=== PATIENT | female | born 1975 | race Caucasian/White ===

== ENCOUNTER 2023-09-24 18:01 | Observation (INO) | payer OTHER, SELFPAY ==
[2023-09-24 18:19] VITALS: BP 143/116; PULSE 124; RESP 22; TEMP 37.2; O2SAT 97; BMI 21.4
[2023-09-24 18:20] VITALS: BMI 21.4
[2023-09-24 18:31] VITALS: BP 149/108; PULSE 106; O2SAT 95
[2023-09-24 18:32] LABS: Basophils # 0.2 K/mm3 (0-0.2); Eosinophils # 0.2 K/mm3 (0.0-0.4); Eosinophils % 1.4 % (0.1-12.0); Hematocrit 43.8 % (37.0-47.0); Hemoglobin 14.6 g/dL (12.2-16.2); Lymphocytes # 3.8 K/mm3 (0.7-4.5); Lymphocytes % 25.6 % (10-50); Mean Corpuscular HGB Conc 33.4 g/dL (31.8-35.4); Mean Corpuscular Volume 89.8 fl (81-99); Monocytes # 0.8 K/mm3 (0.1-1.0); Monocytes % 5.2 % (1.7-9.3); Neutrophils % 66.9 % (37.0-80.0); Platelet Count 257 K/mm3 (142-424); Red Blood Count 4.88 M/mm3 (4.20-5.40); Red Cell Distribution Width 13.3 % (11.5-17.5); White Blood Count 14.9 K/mm3 (4.8-10.8)
[2023-09-24 18:36] LABS: Alanine Aminotransferase 33 U/L (12-78); Albumin Level 4.7 g/dl (3.5-5.0); Albumin/Globulin Ratio 1.4 (1.1-1.8); Alkaline Phosphatase 75 U/L (38-126); Anion Gap 13.7 mEq/L (5-15); Aspartate Amino Transferase 51 U/L (14-36); Bilirubin,Total 0.5 mg/dl (0.2-1.3); Blood Urea Nitrogen 14 mg/dl (7-17); Calcium 10.4 mg/dl (8.4-10.2); Carbon Dioxide 29 mmol/L (22.0-30.0); Chloride 102 mmol/L (98-107); Creatinine Clearance Estimated 64 mL/min (50-200); Estimated Glomerular Filt Rate 60 ml/min (>60); GFR (African American) 73 ML/MIN (>60); Globulin 3.4 g/dL (1.3-3.2); Glucose 100 mg/dl (74-100); Sodium 142 mmol/L (136-145); Total Protein,Serum 8.1 g/dl (6.3-8.2)
[2023-09-24 18:44] LABS: Potassium 2.7 mmoL/L (3.5-5.1)
[2023-09-24 18:49] LABS: Microscopic, Urine URINE MICROSCOPIC (MICROSCOPIC)
[2023-09-24 18:52] LABS: Appearance,Urine CLEAR (Clear); Bilirubin,Urine Negative (Negative); Blood, Urine Negative (Negative); Color,Urine YELLOW (Yellow); Glucose,Urine (UA) Negative (Negative); Ketones,Urine Negative (Negative); Leukocyte Esterase,Urine Negative (Negative); Nitrate,Urine Negative (Negative); Protein,Urine Negative (Negative); Specific Gravity, Urine <= 1.005 (1.005-1.030); Urobilinogen,Urine 0.2 EU/dl (0.2)
--- NOTE | 2023-09-24 19:02 | CT_ITS ---
PROCEDURE INFORMATION: Exam: CT Abdomen And Pelvis With Contrast Exam date and time: 09/24/2023 7:36 PM Age: 47 years old Clinical indication: Abdominal pain; Localized; Right; Additional info: Ruq pain to back, R flank pain TECHNIQUE: Imaging protocol: Computed tomography of the abdomen and pelvis with contrast. Radiation optimization: All CT scans at this facility use at least one of these dose optimization techniques: automated exposure control; mA and/or kV adjustment per patient size (includes targeted exams where dose is matched to clinical indication); or iterative reconstruction. Contrast material: ISOVUE; Contrast volume: 75 ml; Contrast route: IV; COMPARISON: No relevant prior studies available. FINDINGS: Liver: Normal. No mass. Gallbladder and biliary ducts: Normal. No calcified stones. No ductal dilation. Pancreas: Normal. No ductal dilation. Spleen: Normal. No splenomegaly. Adrenal glands: Normal. No mass. Kidneys and ureters: Normal. No hydronephrosis. Stomach and bowel: Moderate fecal material noted throughout the colon. No bowel obstruction. Appendix: No evidence of appendicitis. Intraperitoneal space: Unremarkable. No free air. No significant fluid collection. Vasculature: Unremarkable. No abdominal aortic aneurysm. Lymph nodes: Unremarkable. No enlarged lymph nodes. Urinary bladder: Unremarkable as visualized. Reproductive: Unremarkable as visualized. Bones/joints: Posterior fusion and pedicle screws noted at L5 and S1. Streak artifact noted from metallic hardware. Mild anterior subluxation of L5 on S1. Disc spacer in place at L5-S1. Soft tissues: Unremarkable. IMPRESSION: 1. No acute intra-abdominal inflammatory process or bowel obstruction 2. Moderate fecal burden noted throughout the colon. Correlate clinically for constipation 3. Postsurgical changes secondary to L5 and S1 pedicle screw placement and posterior fusion
[2023-09-24 19:04] LABS: Barbiturates Screen,Urine Negative ng/ml (<200); Benzodiazepines Screen,Urine Negative ng/ml (<200)
--- NOTE | 2023-09-24 19:04 | ED_ITS ---
Discharge Plan Disposition Chief Complaint: Abdominal Pain Referrals Follow up/Referrals: Provider,Referral, [Primary Care Provider] - See instructions Clinical Impressions Clinical Impression: Vomiting, Acute hypokalemia Instructions Patient Instructions: DI for Acute Abdominal Pain Discharge ED Provider: Armaan Tan General Adult HPI General Chief complaint: Abdominal Pain Stated complaint: Abdominal Pain with nausea Time Seen by Provider: 09/24/23 18:27 Mode of Arrival: Ambulatory Source of Information: Patient Limitations: No Limitations Description of Symptoms (Recalled from ER Triage Doc. 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 pt states the pain is stabbing in nature and an 8/10. pt also reports N/V and a migraine that is sharp and 7/10. pt reports photophobia and sensitivity to sound. pt is anxious, thrashing around in the bed, experiencing automatisms, diaphoretic and her face is very red. pt reports she took her 30mg adderall xr this am and has taken her SL migraine medication around 1530 and again at 1700. pt states she smoked marijuanna last night but does not use any other recreational drugs. History of Present Illness HPI narrative: Patient is a 47-year-old female largely healthy who presents emergency department for evaluation of abdominal pain. Onset was acute, over the last 24 hours, associated nonbloody vomiting and severe right upper quadrant and right flank pain radiating to her back. She smoked medical grade marijuana last night. No chest pain. No other acute complaints at this time. Related Data Allergies Allergy/AdvReac Type Severity Reaction Status Date / Time povidone-iodine Allergy Verified 09/24/23 18:23 [From Betadine] pseudoephedrine Allergy Verified 09/24/23 18:23 [From Sudafed] shellfish derived Allergy Verified 09/24/23 18:23 [facility] Disclaimer: The information contained in this section may have been updated after the patient was seen, as this information can be updated by other users. Social History Smoking Status: Current every day smoker alcohol intake: current alcohol intake frequency: other current occupational status: other Travel in the last 8 weeks: None ROS Obtained: Yes Systems reviewed as appropriate & no additional complaints except as documented Physical Exam General General appearance: alert and in distress Head Head exam: atraumatic and normocephalic Eye Eye exam: Present PERRL ENT ENT exam: Present mucous membranes moist Neck Neck exam: Present normal inspection Chest Chest inspection: Present normal inspection and symmetric chest wall rise Respiratory Respiratory exam: Present normal lung sounds bilaterally; Absent respiratory distress Cardiovascular Cardiovascular exam: Present normal rhythm and tachycardia Abdominal Exam Abdominal exam: Present soft, tenderness (Right upper quadrant) and guarding (Voluntary) Extremities Exam Extremities exam: Present normal inspection Neurological Exam Neurological exam: Present alert Psychiatric Psychiatric exam: Present normal affect Skin Skin exam: Present warm and dry Medical Decision Making Kameron Inquiry Pt receiving controlled substance: No Vital Signs: 09/24/23 18:19 09/24/23 18:31 Temperature 99 F Temperature Source Oral Pulse Rate 106 H Pulse Rate [Left] 124 H Respiratory Rate 22 Blood Pressure 149/108 H Blood Pressure [Right Arm] 143/116 H Blood Pressure Mean [Right Arm] 125 Blood Pressure Source [Right Arm] Automatic Cuff Blood Pressure Position [Right Arm] Sitting 02 Sat by Pulse Oximetry 97 95 Oxygen Delivery Method Room Air Room Air Lab Data Lab Results 09/24/23 18:10: Urine Opiates Screen Negative, Urine Methadone Screen Negative, Ur Barbituates Screen Negative, Ur Phencyclidine Scrn Negative, Ur Amphetamines Screen TNP, U Benzodiazepines Scrn Negative, Urine Cocaine Screen Negative, U Marijuana (THC) Screen Positive H 09/24/23 18:15: WBC 14.9 H, RBC 4.88, Hgb 14.6, Hct 43.8, MCV 89.8, MCH 30.0, MCHC 33.4, RDW 13.3, Plt Count 257, MPV 11.0 H, Neut % (Auto) 66.9, Lymph % (Auto) 25.6, [place] % (Auto) 5.2, Eos % (Auto) 1.4, Baso % (Auto) 1.0, Neut # (Auto) 10.0 H, Lymph # (Auto) 3.8, [place] # (Auto) 0.8, Eos # (Auto) 0.2, Baso # (Auto) 0.2, Sodium 142, Potassium 2.7 L*, Chloride 102, Carbon Dioxide 29, Anion Gap 13.7, BUN 14, Creatinine 1.00, Estimated Creat Clear 64, Estimated GFR 60, Est GFR ( Amer) 73, Glucose 100, Lactate 2.5 H, Calcium 10.4 H, Magnesium 1.8, Total Bilirubin 0.5, AST 51 H, ALT 33, Alkaline Phosphatase 75, Troponin I < 0.01, Total Protein 8.1, Albumin 4.7, Globulin 3.4 H, Albumin/Globulin Ratio 1.4, Lipase 109, HCG, Quant < 2 09/24/23 18:25: Urine Color Yellow, Urine Appearance Clear, Urine pH 6.0, Ur Specific [place] <= 1.005, Urine Protein Negative, Urine Glucose (UA) Negative, Urine Ketones Negative, Urine Blood Negative, Urine Nitrate Negative, Urine Bilirubin Negative, Urine Urobilinogen 0.2, Ur Leukocyte Esterase Negative, Urine RBC None, Urine WBC Occasional, Ur Squamous Epith Cells Occasional, Urine Bacteria Trace 09/24/23 18:15 09/24/23 18:15 Orders (Tests/Meds): ED MEDICATIONS Generic Name Dose Route Start Last Admin Trade Name Freq PRN Reason Stop Dose Admin Potassium Chloride/Water 100 mls @ 50 mls/hr 09/24/23 19:00 09/24/23 20:45 Potassium Chloride 20meq/100ml Ivpb IV 09/24/23 22:59 50 mls/hr Q2H MARIAH Administration Discontinued Medications Generic Name Dose Route Start Last Admin Trade Name Freq PRN Reason Stop Dose Admin Acetaminophen 1,000 mg 09/24/23 19:02 09/24/23 19:51 Acetaminophen 1,000mg/100ml Vial IV 09/24/23 19:03 1,000 mg ONCE ONE Administration Lactated Ringer's 1,000 mls @ 999 mls/hr 09/24/23 19:02 09/24/23 19:52 Lactated Ringer's 1000 Ml Bag IV 09/24/23 20:02 Not Given .Q1H1M ONE Lactated Ringer's 1,000 mls @ 820 mls/hr 09/24/23 19:03 09/24/23 21:16 Lactated Ringer's 1000 Ml Bag IV 09/24/23 21:03 Not Given .Q1H14M MARIAH Iopamidol 75 ml 09/24/23 19:34 09/24/23 19:35 Iopamidol-370 (76%);100ml Bottle IV 09/24/23 19:35 75 ml ONCE ONE Administration Ketorolac Tromethamine 30 mg 09/24/23 19:02 09/24/23 19:51 Ketorolac 30mg/Ml Vial IV 09/24/23 19:03 30 mg ONCE ONE Administration Potassium Chloride 40 meq 09/24/23 19:00 09/24/23 19:50 Potassium Chloride 20meq Tab PO 09/24/23 19:01 40 meq ONCE ONE Administration Sodium Chloride 10 ml 09/24/23 19:34 09/24/23 19:35 Sodium Chloride 0.9% 10ml Syr (Rad Only) IV 09/24/23 19:35 10 ml ONCE ONE Administration ORDERS Category Date Time Status CT abdomen pelvis w con Stat Cat Scan 09/24/23 19:02 Completed Complete Blood Count Auto Diff Stat Lab 09/24/23 18:15 Completed Comprehensive Metabolic Panel Stat Lab 09/24/23 18:15 Completed HCG,Quantitative Stat Lab 09/24/23 18:15 Completed Lactic Acid Stat Lab 09/24/23 18:15 Completed Lipase Stat Lab 09/24/23 18:15 Completed Magnesium Stat Lab 09/24/23 18:15 Completed Trop I [Troponin I] Stat Lab 09/24/23 18:15 Completed Troponin I Q3H Lab 09/24/23 22:15 Ordered Troponin I Q3H Lab 09/25/23 01:15 Ordered UDS [Drug Screen,Urine] Stat Lab 09/24/23 18:10 Completed Urinalysis and Microscopic Stat Lab 09/24/23 18:25 Completed EKG Request [ECG Request] Stat Y 09/24/23 19:06 Ordered ECG Data Tracing #1: Independently interpreted by me, rate is 89, rhythm is regular, axis is normal, no ST elevation in anatomical contiguous leads, QTc 429 Medical Decision Narrative: In summary patient is a 47-year-old female past medical history described above who presents emergency department for evaluation of abdominal pain and vomiting. Patient is hemodynamically stable and appearing in pain upon arrival, afebrile however tachycardic. Differential diagnosis includes cholecystitis, pancreatitis, among others. Workup will be conducted with hematologic labs, urinalysis, EKG, troponin, CT abdomen pelvis IV contrast. Initial interventions include crystalloid bolus, Zofran, IV Tylenol, IV Toradol, morphine. Initial workup reviewed by me, leukocytosis 14.9, critical hypokalemia which will be repleted orally and IV, no associated hypomagnesemia. Urinalysis interpreted by me and not consistent with infection. CT abdomen pelvis shows moderate fecal burden, no acute abdominal abnormality. Tissue reperfusion assessment 2143. Given critical hypokalemia the case was discussed with hospital medicine regarding management patient be admitted to their service for continued evaluation at this time. Critical Care Critical Care Time Critical Care Time: Yes Attestation: On 09/24/23, the high probability of a clinically significant, sudden or life threatening deterioration of the following system(s) required my full and direct attention, intervention and personal management. The time I documented below is in addition to time spent performing reported procedures but includes the following listed in this critical care notation. Total Time Total Critical Care Time: 40
[2023-09-24 19:05] LABS: Cannabinoid Screen,Urine Positive ng/ml (<50)
[2023-09-24 19:06] LABS: Magnesium 1.8 mg/dl (1.6-2.3)
[2023-09-24 19:06] LABS: Cocaine Screen,Urine Negative ng/ml (<300)
--- NOTE | 2023-09-24 19:06 | ECG_ITS ---
APPROVED REPORT Exam: Resting ECG HR:89 bpm ECG Measurements Heart Rate 89 AXES MI 169 P 76 QRSd 97 QRS 70 QT 382 T 72 QTc 429 Conclusion SINUS RHYTHM WITH MARKED SINUS ARRHYTHMIA INDETERMINATE AXIS BORDERLINE ECG Electronically signed by : BRIGITTE OLIVER, 09/25/2023 00:12:20
[2023-09-24 19:07] LABS: Methadone Screen,Urine Negative ng/ml (<300)
[2023-09-24 19:08] LABS: Lipase 109 U/L (23-300)
[2023-09-24 19:08] LABS: Opiate Screen,Urine Negative ng/ml (<300)
[2023-09-24 19:09] LABS: Phencyclidine Screen,Urine Negative ng/ml (<25)
[2023-09-24 19:23] LABS: Bacteria,Urine Trace /lpf; Squamous Epithelial Cell,Urine Occasional #/hpf (0-5); WBC,Urine Occasional #/hpf (0-3)
[2023-09-24 19:28] LABS: HCG,Quantitative < 2 mIU/ml (0-5.42)
[2023-09-24] MEDS: IOPAMIDOL-370 (76%);100ML BOTTLE 75 ML IV (19:35)
[2023-09-24] MEDS: SODIUM CHLORIDE 0.9% 10ML SYR (RAD ONLY) 10 ML IV (19:35)
[2023-09-24 19:38] LABS: Troponin I < 0.01 ng/ml (0.00-0.034)
--- NOTE | 2023-09-24 19:44 | PC.NURSE ---
Rounded on pt. pt does not need anything at this time. BP cuff and pulse ox intact. Call light is within reach of pt.
[2023-09-24] MEDS: LACTATED RINGERS 1000ML 1,000 ML 820 ML IV (19:50)
[2023-09-24] MEDS: POTASSIUM CHLORIDE 20MEQ TAB 40 MEQ PO (19:50)
[2023-09-24] MEDS: KETOROLAC 30MG/ML VIAL 30 MG IV (19:51)
[2023-09-24] MEDS: ACETAMINOPHEN 1,000MG/100ML VIAL 1000 MG IV (19:51)
[2023-09-24 19:55] LABS: Lactic Acid 2.5 mmol/L (0.7-2.1)
--- NOTE | 2023-09-24 20:27 | PC.NURSE ---
rounded on pt at this time. pt voices no needs
[2023-09-24] MEDS: KCl 20mEq/100ml 100 ML 50 MEQ IV ×2 (20:45→22:35)
--- NOTE | 2023-09-24 21:15 | PC.NURSE ---
rounded on pt at this time. pt voices no needs.
--- NOTE | 2023-09-24 22:00 | PC.NURSE ---
Gave report to Citlalli ORDONEZ Med/Surg
[2023-09-24 22:01] VITALS: BP 140/90; PULSE 94; RESP 15; TEMP 36.8; O2SAT 98
[2023-09-24 22:23] VITALS: BP 140/84; PULSE 102; RESP 16; TEMP 36.7; O2SAT 91; BMI 21.2
--- NOTE | 2023-09-24 22:26 | PC.NURSE ---
Patient arrived to floor via wheelchair from ED at 22:09.
[2023-09-24 23:00] LABS: Troponin I < 0.01 ng/ml (0.00-0.034)
--- NOTE | 2023-09-24 23:12 | P.HP_ITS ---
History of Present Illness *Admission Date: 09/24/23 *Reason for visit:: Vomiting, abdominal pain *History of present illness: Raven Leonardo is a 47-year-old female past medical significant for anxiety who presents emergency room tonight with complaints of right upper quadrant pain and vomiting. This appears is here with a significant other. They are traveling from [place] to [place] and back, apparently she had assigned work papers. States it has been approximately 1 week since she had a bowel movement. Started having some right upper quadrant pain today, nonradiating. Emesis appeared frothy, nonbilious nonbloody. Her significant other that she was with gave her some medical grade marijuana last night, had no issues with that but was having vomiting today. Does still have her gallbladder and her appendix. No abdominal surgeries noted. Denies any cough, fever, chest pain, shortness of breath. No focal neurodeficits noted. Does not take any blood thinners. Does vape, denies any alcohol or illicit drug use. Tells me the only medication she takes every day or Klonopin and Adderall. Workup in the ER showed a elevated white count of 14.9, potassium low at 2.7, lactic acid is elevated 2.5. AST slightly bumped at 51. UA appears noninfectious. CT of the abdomen pelvis showed a moderate fecal burden consistent with constipation otherwise unremarkable. She was given potassium replacement in the ER and 1 L IV fluid bolus as well as pain medication. She will be admitted to hospital service for hypokalemia. [facility] Disclaimer: The information contained in this section may have been updated after the patient was seen, as this information can be updated by other users. Social History (Updated 09/24/23 @ 23:07 by Domi Jefferson RN) Smoking Status: Current every day smoker alcohol intake: current alcohol intake frequency: other current occupational status: other Travel in the last 8 weeks: None Review of Systems Review of Systems Review of systems:: pertinent systems reviewed and negative unless documented below *Gastrointestinal Gastrointestinal: Reports change in bowel habits, Reports constipation, Reports nausea and Reports vomiting Meds Home Medications and Allergies Home Medications Medication Instructions Recorded Confirmed Type polyethylene glycol 3350 17 gram 17 g PO DAILY 30 days #0 ea 09/25/23 Rx oral powder packet ([employer]) New Prescriptions to Start Prescriptions: Allergies Allergy/AdvReac Type Severity Reaction Status Date / Time povidone-iodine Allergy Verified 09/24/23 18:23 [From Betadine] pseudoephedrine Allergy Verified 09/24/23 18:23 [From Sudafed] shellfish derived Allergy Verified 09/24/23 18:23 Exam Data for Last 24 hours Vital signs and Labs for Last 24 Hours: Temp Pulse Resp BP Pulse Ox O2 Del Method 98.1 F 102 H 16 140/84 91 L Room Air 09/24/23 22:23 09/24/23 22:23 09/24/23 22:23 09/24/23 22:23 09/24/23 22:23 09/24/23 22:23 Laboratory Results - last 24 hr 09/24/23 18:10: Urine Opiates Screen Negative, Urine Methadone Screen Negative, Ur Barbituates Screen Negative, Ur Phencyclidine Scrn Negative, Ur Amphetamines Screen TNP, U Benzodiazepines Scrn Negative, Urine Cocaine Screen Negative, U Marijuana (THC) Screen Positive H 09/24/23 18:15: WBC 14.9 H, RBC 4.88, Hgb 14.6, Hct 43.8, MCV 89.8, MCH 30.0, MCHC 33.4, RDW 13.3, Plt Count 257, MPV 11.0 H, Neut % (Auto) 66.9, Lymph % (Auto) 25.6, [place] % (Auto) 5.2, Eos % (Auto) 1.4, Baso % (Auto) 1.0, Neut # (Auto) 10.0 H, Lymph # (Auto) 3.8, [place] # (Auto) 0.8, Eos # (Auto) 0.2, Baso # (Auto) 0.2, Sodium 142, Potassium 2.7 L*, Chloride 102, Carbon Dioxide 29, Anion Gap 13.7, BUN 14, Creatinine 1.00, Estimated Creat Clear 64, Estimated GFR 60, Est GFR ( Amer) 73, Glucose 100, Lactate 2.5 H, Calcium 10.4 H, Magnesium 1.8, Total Bilirubin 0.5, AST 51 H, ALT 33, Alkaline Phosphatase 75, Troponin I < 0.01, Total Protein 8.1, Albumin 4.7, Globulin 3.4 H, Albumin/Globulin Ratio 1.4, Lipase 109, HCG, Quant < 2 09/24/23 18:25: Urine Color Yellow, Urine Appearance Clear, Urine pH 6.0, Ur Specific [place] <= 1.005, Urine Protein Negative, Urine Glucose (UA) Negative, Urine Ketones Negative, Urine Blood Negative, Urine Nitrate Negative, Urine Bilirubin Negative, Urine Urobilinogen 0.2, Ur Leukocyte Esterase Negative, Urine RBC None, Urine WBC Occasional, Ur Squamous Epith Cells Occasional, Urine Bacteria Trace 09/24/23 22:30: Troponin I < 0.01 I & O for Last 24 hours: Intake & Output 09/21/23 09/22/23 09/23/23 09/24/23 23:59 23:59 23:59 23:59 Weight 56.245 kg *Routine HEENT Exam Head: Present normocephalic and atraumatic Eye: Present EOMI and PERRL ENT: Present mucous membranes moist *Routine Neck Exam Neck: Present supple *Routine Respiratory Exam Respiratory: Present CTA bilaterally *Routine Cardiovascular Exam Cardiovascular: Present RRR, Normal S1 and Normal S2 *Routine Abdominal Exam Abdominal: Present soft, normoactive bowel sounds and tenderness Comments: TTP right upper quadrant *Routine Rectal Exam Rectal:: deferred *Routine Genitalia Exam Genitalia:: deferred *Routine Extremities Exam Extremities: Present pulses intact and normal capillary refill *Routine Skin Exam Skin: Present intact *Routine Neurological Exam Neurological: Present alert and oriented X3 Assessment and Plan *Assessment and plan (1) Acute hypokalemia: Status: Acute Category: Medical Code(s): E87.6 - Hypokalemia (2) Constipation: Status: Acute Category: Medical Code(s): K59.00 - Constipation, unspecified (3) Anxiety: Status: Acute Category: Medical Code(s): F41.9 - Anxiety disorder, unspecified Plan Assessment: This is a 47-year-old female admitted for hypokalemia and intractable nausea vomiting. On my exam, patient is lying in bed in no acute distress. Anxious appearing, still complaining of right upper quadrant pain. Plan: Admit to observation-MedSurg Hypokalemia -Replace per protocol -Recheck potassium this morning and replace as needed Intractable nausea/vomiting -Antiemetics as needed -Advance diet as tolerated Anxiety -Patient states she takes Klonopin at home, not sure of the dose DVT prophylaxis: Lovenox CODE STATUS: Full code Surrogate decision maker: Payam [phone] Skin: Low risk Rounded on patient after nurse practitioner. Personally examined and interviewed patient. Agree with exam findings and care plan as documented.
[2023-09-24 23:29] LABS: Reflex Lactic Add Lactic Reflex
[2023-09-25] VITALS (7 sets, daily range): BP systolic 103–140; BP diastolic 61–85; PULSE 66–101; RESP 16–20; TEMP 36.7–36.9; O2SAT 94–100; BMI 20.4
[2023-09-25 02:55] LABS: Troponin I < 0.01 ng/ml (0.00-0.034)
[2023-09-25] MEDS: KETOROLAC 30MG/ML VIAL 30 MG IM (04:24)
--- NOTE | 2023-09-25 04:36 | PC.NURSE ---
47 yo female pt admitted with abdominal pain and hyponatremai with K+ at 2.7 on admit. Pt had oral potassium and 2 runs of IV potassium with last check this at K+ at 4.0. Pt continues to have intermittent waves of pain to RUQ. Medicated with Torodol around 430. Pt has slept on and off since arriving on the floor. She is able to ambulate with standby assist, family at BS
[2023-09-25] MEDS: ONDANSETRON 4MG/2ML VIAL 4 MG IV (07:33)
[2023-09-25 08:24] LABS: Basophils # 0.1 K/mm3 (0-0.2); Basophils % 0.9 % (0.1-2.0); Eosinophils # 0.2 K/mm3 (0.0-0.4); Hematocrit 41.4 % (37.0-47.0); Hemoglobin 13.7 g/dL (12.2-16.2); Lymphocytes # 1.7 K/mm3 (0.7-4.5); Lymphocytes % 21.7 % (10-50); Mean Corpuscular HGB Conc 33.1 g/dL (31.8-35.4); Mean Corpuscular Hemoglobin 30.1 pg (27.0-31.2); Mean Corpuscular Volume 90.9 fl (81-99); Mean Platelet Volume 11.3 fl (7.4-10.4); Monocytes # 0.4 K/mm3 (0.1-1.0); Monocytes % 5.4 % (1.7-9.3); Neutrophils # 5.3 K/mm3 (1.8-7.8); Neutrophils % 69.9 % (37.0-80.0); Platelet Count 195 K/mm3 (142-424); Red Blood Count 4.55 M/mm3 (4.20-5.40); Red Cell Distribution Width 13.4 % (11.5-17.5); White Blood Count 7.6 K/mm3 (4.8-10.8)
[2023-09-25 08:27] LABS: Chloride 107 mmol/L (98-107); Sodium 139 mmol/L (136-145)
[2023-09-25 08:28] LABS: Potassium 3.7 mmoL/L (3.5-5.1)
[2023-09-25 08:30] LABS: Blood Urea Nitrogen 8 mg/dl (7-17); Creatinine Clearance Estimated 76 mL/min (50-200); Estimated Glomerular Filt Rate 78 ml/min (>60); GFR (African American) 94 ML/MIN (>60)
[2023-09-25 08:31] LABS: Anion Gap 8.7 mEq/L (5-15); Calcium 9.3 mg/dl (8.4-10.2); Carbon Dioxide 27 mmol/L (22.0-30.0); Glucose 87 mg/dl (74-100)
[2023-09-25] MEDS: SENNOSIDES 8.6MG/DOCUSATE 50MG TABLET 1 TAB PO ×2 (09:28→20:16)
[2023-09-25] MEDS: POLYETHYLENE GLYCOL 3350 17 GM PACKET PO (09:28)
[2023-09-25] MEDS: KETOROLAC 30MG/ML VIAL 30 MG IV (11:07)
--- NOTE | 2023-09-25 11:16 | PC.NURSE ---
attempted to call pt's person to notify that she is ready for discharge. No answer. I left a voicemail. Pt was also noted to be hysterically crying at this time.
--- NOTE | 2023-09-25 11:31 | PC.NURSE ---
second attempt to call patient's contact, Abdirizak, no answer, voicemail left on previous call, will attempt to call again
--- NOTE | 2023-09-25 11:56 | PC.NURSE ---
Spoke with deepa Reveles's contact, he stated that he just got out of [facility]lim in [place] and he would be here as soon as he could to get her.
[2023-09-25] MEDS: LORazepam 2MG/ML VIAL 1 MG IM (13:00)
[2023-09-25] MEDS: MORPHINE 2MG/ML SYRINGE 2 MG IM (13:04)
[2023-09-25] MEDS: UBROGEPANT 50MG TABLET 100 MG PO (13:07)
[2023-09-25] MEDS: diphenhydrAMINE 50MG/ML VIAL 25 MG IM (13:09)
--- NOTE | 2023-09-25 13:26 | PC.NURSE ---
Pt had a visitor come in to get her about 1245 then came back out of the room and stated that, I am no taking her home like this . This RN and Monet Perry RN went to bedside and called MD and updated him on Pt's condition. cam to bedside as well. gave verbal orders for 1mg Ativan IM, 2MG morphine IM, Ubrelvy PO, 25mg Benadryl IM. All meds given and curtains pulled due to pt saying that her head hurt and symptoms are migraine like. stated to give meds appox. 30 mmins sand we will re-evaluate
--- NOTE | 2023-09-25 13:43 | PC.NURSE ---
pt is currently resting in bed and appears to be in less pain. She is no longer thrashing, breathing is even and unlabored. She has a friend at bedside.
--- NOTE | 2023-09-25 14:35 | CT_ITS ---
PROCEDURE INFORMATION: Exam: CT Head Without Contrast Exam date and time: 09/25/2023 2:52 PM Age: 47 years old Clinical indication: Pain; Headache TECHNIQUE: Imaging protocol: Computed tomography of the head without contrast. Radiation optimization: All CT scans at this facility use at least one of these dose optimization techniques: automated exposure control; mA and/or kV adjustment per patient size (includes targeted exams where dose is matched to clinical indication); or iterative reconstruction. COMPARISON: No relevant prior studies available. FINDINGS: Brain: Normal. No hemorrhage. Unremarkable white matter. No mass effect. Cerebral ventricles: No ventriculomegaly. Paranasal sinuses: Visualized sinuses are unremarkable. No fluid levels. Mastoid air cells: Visualized mastoid air cells are well aerated. Bones: Unremarkable. No acute fracture. Soft tissues: Unremarkable. Vasculature: Along the expected path of the internal cerebral veins there is multiple linear calcifications which appear to extend near the confluence of the vein of Raman/straight sinus concerning for possible thrombosis. IMPRESSION: 1. Calcifications along the pathway of the internal cerebral veins at the floor 3rd ventricle extending into the confluence near the vein of Raman/straight sinus. Concerning for possible thrombosis. As such recommend CT venogram for further assessment. 2. No further acute intracranial findings.
[2023-09-25] MEDS: SODIUM PHOS/BIPHOSPHATE FLEET 133ML ENEMA 133 ML RC (15:00)
--- NOTE | 2023-09-25 15:33 | PC.NURSE ---
Pt tolerated CT well and tolerated enema well.
--- NOTE | 2023-09-25 16:14 | EXP.ACUTE.PN ---
Subjective *Date: 09/25/23 *Time: 17:05 Interval history: Patient stable on room air. This morning had some mild abdominal pain. Offered enema, patient declined. Plan was to discharge home. Was tolerating small amounts of p.o. intake. Patient stated she would do outpatient stool softener. Prior to discharge however she developed an intractable headache. Profuse sweating, complaining of severe pain. Patient has history of migraines. Her friend who is with her states that she takes headache medication (believed to be sumatriptan) multiple times a day most days for her headaches. Patient treated with a dose of Ativan, morphine, Benadryl. Gradually improved. CT obtained showing possible venous sinus thrombosis. Necessitating continued admission and further management. Medical Exam Vital signs and Labs for Last 24 Hours: Vital Signs Temp Pulse Pulse Resp BP BP Pulse Ox 09/25/23 15:00 09/25/23 13:00 09/25/23 11:00 09/25/23 09:00 09/25/23 08:31 09/25/23 08:05 95 H 09/25/23 08:00 98.5 F 98 H 20 130/85 97 09/25/23 06:44 09/25/23 05:00 09/25/23 04:00 88 09/25/23 03:00 09/25/23 01:00 09/25/23 00:00 98.0 F 92 H 16 140/79 100 09/24/23 23:00 09/24/23 22:23 98.1 F 102 H 16 140/84 91 L 09/24/23 22:01 98.3 F 94 H 15 140/90 09/24/23 18:31 106 H 149/108 H 95 09/24/23 18:19 99 F 124 H 22 143/116 H 97 O2 Del Method 09/25/23 15:00 Room Air 09/25/23 13:00 Room Air 09/25/23 11:00 Room Air 09/25/23 09:00 Room Air 09/25/23 08:31 Room Air 09/25/23 08:05 09/25/23 08:00 Room Air 09/25/23 06:44 Room Air 09/25/23 05:00 Room Air 09/25/23 04:00 09/25/23 03:00 Room Air 09/25/23 01:00 Room Air 09/25/23 00:00 Room Air 09/24/23 23:00 Room Air 09/24/23 22:23 Room Air 09/24/23 22:01 Room Air 09/24/23 18:31 Room Air 09/24/23 18:19 Room Air Intake and Output 09/25/23 09/25/23 09/25/23 07:59 15:59 23:59 Intake Total 100 / 300 200 / 300 Output Total 0 / 0 Balance 100 / 300 200 / 300 Intake: Intake, Oral Amount 200 / 200 Intake, Total IV Amount 100 / 100 KCl 20mEq/100ml 100 ml @ 50 mls 100 / 100 /hr IV Q2H [facility] Rx#:[id number] Output: Output, Urine Amount 0 / 0 Other: Number of Unmeasured Voids 1 Weight 54.2 kg Patient Weight 09/25/23 23:59 Weight 54.2 kg Laboratory Results - last 24 hr 09/24/23 18:10: Urine Opiates Screen Negative, Urine Methadone Screen Negative, Ur Barbituates Screen Negative, Ur Phencyclidine Scrn Negative, Ur Amphetamines Screen TNP, U Benzodiazepines Scrn Negative, Urine Cocaine Screen Negative, U Marijuana (THC) Screen Positive H 09/24/23 18:15: WBC 14.9 H, RBC 4.88, Hgb 14.6, Hct 43.8, MCV 89.8, MCH 30.0, MCHC 33.4, RDW 13.3, Plt Count 257, MPV 11.0 H, Neut % (Auto) 66.9, Lymph % (Auto) 25.6, [place] % (Auto) 5.2, Eos % (Auto) 1.4, Baso % (Auto) 1.0, Neut # (Auto) 10.0 H, Lymph # (Auto) 3.8, [place] # (Auto) 0.8, Eos # (Auto) 0.2, Baso # (Auto) 0.2, Sodium 142, Potassium 2.7 L*, Chloride 102, Carbon Dioxide 29, Anion Gap 13.7, BUN 14, Creatinine 1.00, Estimated Creat Clear 64, Estimated GFR 60, Est GFR ( Amer) 73, Glucose 100, Lactate 2.5 H, Calcium 10.4 H, Magnesium 1.8, Total Bilirubin 0.5, AST 51 H, ALT 33, Alkaline Phosphatase 75, Troponin I < 0.01, Total Protein 8.1, Albumin 4.7, Globulin 3.4 H, Albumin/Globulin Ratio 1.4, Lipase 109, HCG, Quant < 2 09/24/23 18:25: Urine Color Yellow, Urine Appearance Clear, Urine pH 6.0, Ur Specific [place] <= 1.005, Urine Protein Negative, Urine Glucose (UA) Negative, Urine Ketones Negative, Urine Blood Negative, Urine Nitrate Negative, Urine Bilirubin Negative, Urine Urobilinogen 0.2, Ur Leukocyte Esterase Negative, Urine RBC None, Urine WBC Occasional, Ur Squamous Epith Cells Occasional, Urine Bacteria Trace 09/24/23 22:30: Troponin I < 0.01 09/24/23 22:50: Lactate 1.0 09/25/23 02:15: Potassium 4.0 D, Troponin I < 0.01 09/25/23 07:25: WBC 7.6 D, RBC 4.55, Hgb 13.7, Hct 41.4, MCV 90.9, MCH 30.1, MCHC 33.1, RDW 13.4, Plt Count 195, MPV 11.3 H, Neut % (Auto) 69.9, Lymph % (Auto) 21.7, [place] % (Auto) 5.4, Eos % (Auto) 2.0, Baso % (Auto) 0.9, Neut # (Auto) 5.3, Lymph # (Auto) 1.7, [place] # (Auto) 0.4, Eos # (Auto) 0.2, Baso # (Auto) 0.1, Sodium 139, Potassium 3.7, Chloride 107, Carbon Dioxide 27, Anion Gap 8.7, BUN 8 D, Creatinine 0.80, Estimated Creat Clear 76, Estimated GFR 78, Est GFR ( Amer) 94 D, Glucose 87, Calcium 9.3 I & O for Labs for Last 24 Hours: Intake & Output 09/22/23 09/23/23 09/24/23 09/25/23 23:59 23:59 23:59 23:59 Intake Total 300 / 300 Output Total 0 / 0 Balance 300 / 300 Weight 56.245 kg 54.2 kg Constitutional: Present mild distress and average body habitus Head: Present atraumatic and normocephalic ENT: Present normal exam Respiratory: Present normal respiratory effort; Absent rhonchi, wheezes or crackles Cardiac: Present Reg Rate and Rhythm GI: Present soft, tenderness (Nonfocal) and normal bowel sounds; Absent distention (female): Present deferred Extremities: Present normal inspection and full ROM Skin: Present intact; Absent erythema Neuro: Present Grossly Intact, alert, awake, oriented x 3 and moves all extremities Additional Findings:: Anxious, agitated, histrionic at times. Assessment and Plan *Assessment and plan (1) Intractable headache: Status: Acute Category: Medical Code(s): R51.9 - Headache, unspecified (2) Abnormal finding on CT scan: Status: Acute Category: Medical Code(s): R93.89 - Abnormal findings on diagnostic imaging of other specified body structures (3) Amphetamine use: Status: Acute Category: Medical Code(s): F15.90 - Other stimulant use, unspecified, uncomplicated (4) Constipation: Status: Acute Category: Medical Code(s): K59.00 - Constipation, unspecified (5) Acute hypokalemia: Status: Acute Category: Medical Code(s): E87.6 - Hypokalemia (6) Anxiety: Status: Acute Category: Medical Code(s): F41.9 - Anxiety disorder, unspecified Plan This is a 47-year-old female admitted for hypokalemia and intractable nausea vomiting. On my exam, patient is lying in bed in no acute distress. Anxious appearing, still complaining of right upper quadrant pain. Admitted to medicine for further management. Plan was to discharge in the morning given her improvement and need for bowel regimen which she could do as an outpatient. Prior to discharge, developed intractable headache. CT obtained, per my review I did not appreciate any mass effect but formal read give concern for possible venous sinus thrombosis. Needs further imaging with contrast. Complicated by implanted hardware and iodine anaphylactic allergy. Anticoagulating. Necessitating inpatient management. Problems addressed as follows: Intractable headache Suspected venous sinus thrombosis History of migraine -CT formal read per discussion with radiologist showing suspected venous sinus thrombosis. Unclear if acute versus chronic. -Initiate Lovenox 1 mg/kg twice daily -Anaphylaxis allergy to iodine/shellfish. Will consider pretreatment if unable to obtain MRI. Discussed with radiology in the morning the possibility for MR [place] in light of her hardware in her lower back. -Continue Toradol 30 mg as needed every 6 hours morphine 2 mg as needed every 4 hours for intractable pain. Monitor for toxicity Nausea and vomiting: Resolved Constipation -Continue bowel regimen with docusate senna twice daily. MiraLAX daily. Enema administered today, monitoring for bowel movement. States she has bowel movement every 2 to 4 days. Hypokalemia Potassium resolved 3.7 today. Repeat CBC, CMP, magnesium ordered for the morning. Anxiety -Patient states she takes Klonopin at home, not sure of the dose. Hold further benzodiazepine dosing. Received 2 mg IM Ativan during her headache episode. Drug screen positive for amphetamine. Level sent for quantification as it was too high to evaluate in our lab. Concerned symptoms may be related to amphetamine use and withdrawal. DVT prophylaxis: Therapeutic Lovenox CODE STATUS: Full code Surrogate decision maker: Payam [phone] Skin: Low risk
[2023-09-25] MEDS: LACTATED RINGERS 1000ML 1,000 ML 500 ML IV (17:41)
[2023-09-25] MEDS: ENOXAPARIN 100MG/ML SYRINGE 55 MG SQ (17:41)
--- NOTE | 2023-09-25 17:48 | PC.NURSE ---
Pt is currently awake, alert and oriented and states that she does not remember most of the afternoon. she states that she does not remember being curled up in the position around lunch time. Pt reports that she does not have a headache and that her abdominal pain is almost non-existent . She states that she is feeling much better this evening.
--- NOTE | 2023-09-25 17:54 | PC.NURSE ---
attempted to get an accurate med list on pt. other than her adderall she take tryptophan for her migraines but does not remember the dose and she usually takes a B12 injections but has not in a long time. She also states that she has a B12 injection, in the truck .
--- NOTE | 2023-09-25 18:29 | CT_ITS ---
PROCEDURE INFORMATION: Exam: CTA Head With Contrast, Venography Exam date and time: 09/25/2023 6:56 PM Age: 47 years old Clinical indication: Dizziness and giddiness and headache; Additional info: Rule out vst TECHNIQUE: Imaging protocol: Computed tomography angiography of the head with contrast. Exam focused on the veins. 3D rendering (Not supervised by radiologist): MIP and/or 3D reconstructed images were created by the technologist. Radiation optimization: All CT scans at this facility use at least one of these dose optimization techniques: automated exposure control; mA and/or kV adjustment per patient size (includes targeted exams where dose is matched to clinical indication); or iterative reconstruction. Contrast material: ISOVUE 370; Contrast volume: 100 ml; Contrast route: INTRAVENOUS (IV); COMPARISON: CT HEAD/BRAIN WO CON 09/25/2023 2:52 PM FINDINGS: Superior sagittal sinus: Patent. Deep cerebral veins: Patent internal cerebral veins. Straight sinus: Patent. Transverse sinuses: Patent. Sigmoid sinuses: Patent. Internal jugular veins: Limited visualized internal jugular veins are patent. Brain: No definite mass, mass effect, or midline shift. Cerebral ventricles: No ventriculomegaly. Soft tissues: Unremarkable. IMPRESSION: No evidence of venous thrombosis.
[2023-09-25] MEDS: SODIUM CHLORIDE 0.9% 10ML SYR (RAD ONLY) 10 ML IV (18:58)
[2023-09-25] MEDS: IOPAMIDOL-370 (76%);100ML BOTTLE 100 ML IV (18:58)
[2023-09-25] MEDS: 0.9 % SODIUM CHLORIDE 50 ML VIAL IV (18:58)
[2023-09-26 04:00] VITALS: BMI 21.4
--- NOTE | 2023-09-26 04:33 | PC.NURSE ---
47 yo female pt admitted with hyponatremia and abdominal pain. Pt is A/O X 4 and has denied pain throughout shift. She has slept most of shift. Pt continues to present as anxious and early in the shift, she seemed very unsteady with ambulation. She wished to shower, clinical writer and nurse tech encouraged either Cg remain with pt or she allow one of the staff to stay with her due to being unsteady and for safety. Pt was reluctant but agreeable. CT results back with no evidence of clot.
[2023-09-26 04:50] VITALS: BP 102/59; PULSE 82; RESP 16; TEMP 36.6; O2SAT 93
[2023-09-26 06:35] LABS: Basophils # 0.1 K/mm3 (0-0.2); Eosinophils # 0.3 K/mm3 (0.0-0.4); Hematocrit 38.8 % (37.0-47.0); Hemoglobin 12.9 g/dL (12.2-16.2); Lymphocytes # 2.4 K/mm3 (0.7-4.5); Lymphocytes % 42.1 % (10-50); Mean Corpuscular HGB Conc 33.2 g/dL (31.8-35.4); Mean Corpuscular Hemoglobin 30.5 pg (27.0-31.2); Mean Corpuscular Volume 91.9 fl (81-99); Mean Platelet Volume 10.8 fl (7.4-10.4); Monocytes # 0.3 K/mm3 (0.1-1.0); Monocytes % 5.6 % (1.7-9.3); Neutrophils # 2.5 K/mm3 (1.8-7.8); Neutrophils % 45.3 % (37.0-80.0); Platelet Count 181 K/mm3 (142-424); Red Blood Count 4.22 M/mm3 (4.20-5.40); Red Cell Distribution Width 13.5 % (11.5-17.5); White Blood Count 5.6 K/mm3 (4.8-10.8)
[2023-09-26 06:40] LABS: Chloride 108 mmol/L (98-107); Sodium 138 mmol/L (136-145)
[2023-09-26 06:42] LABS: Blood Urea Nitrogen 13 mg/dl (7-17); Creatinine Clearance Estimated 80 mL/min (50-200); Estimated Glomerular Filt Rate 78 ml/min (>60); GFR (African American) 94 ML/MIN (>60)
[2023-09-26 06:43] LABS: Alanine Aminotransferase 19 U/L (12-78); Albumin Level 3.2 g/dl (3.5-5.0); Albumin/Globulin Ratio 1.3 (1.1-1.8); Alkaline Phosphatase 53 U/L (38-126); Aspartate Amino Transferase 43 U/L (14-36); Bilirubin,Total 0.4 mg/dl (0.2-1.3); Calcium 8.8 mg/dl (8.4-10.2); Carbon Dioxide 29 mmol/L (22.0-30.0); Globulin 2.5 g/dL (1.3-3.2); Glucose 70 mg/dl (74-100); Total Protein,Serum 5.7 g/dl (6.3-8.2)
[2023-09-26 06:44] LABS: Magnesium 1.9 mg/dl (1.6-2.3)
--- NOTE | 2023-09-26 07:31 | P.DS_ITS ---
General Admission date:: 09/24/23 Discharge date: 09/25/23 HPI HPI HPI: Raven Leonardo is a 47-year-old female past medical significant for anxiety who presents emergency room tonight with complaints of right upper quadrant pain and vomiting. This appears is here with a significant other. They are traveling from [place] to [place] and back, apparently she had assigned work papers. States it has been approximately 1 week since she had a bowel movement. Started having some right upper quadrant pain today, nonradiating. Emesis appeared frothy, nonbilious nonbloody. Her significant other that she was with gave her some medical grade marijuana last night, had no issues with that but was having vomiting today. Does still have her gallbladder and her appendix. No abdominal surgeries noted. Denies any cough, fever, chest pain, shortness of breath. No focal neurodeficits noted. Does not take any blood thinners. Does vape, denies any alcohol or illicit drug use. Tells me the only medication she takes every day or Klonopin and Adderall. Workup in the ER showed a elevated white count of 14.9, potassium low at 2.7, lactic acid is elevated 2.5. AST slightly bumped at 51. UA appears noninf ectious. CT of the abdomen pelvis showed a moderate fecal burden consistent with constipation otherwise unremarkable. She was given potassium replacement in the ER and 1 L IV fluid bolus as well as pain medication. She will be admitted to hospital service for hypokalemia. Hospital Course Hospital Course Hospital Course: This is a 47-year-old female admitted for hypokalemia and intractable nausea vomiting. On my exam, patient is lying in bed in no acute distress. Anxious appearing, still complaining of right upper quadrant pain. Admitted to medicine for further management. CT unremarkable other than moderate stool burden concerning for constipation. Patient appears to be very anxious. UDS positive for THC and amphetamines. Tolerating p.o. intake with no vomiting. Given her clinical stability with her labs, diagnosis of constipation, encourage bowel regimen. Patient medically stable to discharge and further treat as an outpatient. Problems addressed as follows: Hypokalemia -Potassium low on admission at 2.7. Improved with replacement. 4.0 by morning. Encouraged adequate nutrition to maintain potassium levels Intractable nausea/vomiting Constipation -Antiemetics as needed. Tolerating at least 25% of her breakfast. Also found to be constipated. Encourage bowel regimen. Treated while admitted. Recommend MiraLAX [id number] at discharge. -No further vomiting during admission. Anxiety -Patient states she takes Klonopin at home, not sure of the dose. UDS positive for THC and amphetamines. Concern her anxiety has a component of substance dependence. Stable to discharge for further treatment of her constipation as an outpatient Exam Data for Last 24 hours Vital signs and Labs for Last 24 Hours: Temp Pulse Resp BP Pulse Ox O2 Del Method 98.0 F 88 16 140/79 100 Room Air 09/25/23 00:00 09/25/23 04:00 09/25/23 00:00 09/25/23 00:00 09/25/23 00:00 09/25/23 06:44 Laboratory Results - last 24 hr 09/24/23 18:10: Urine Opiates Screen Negative, Urine Methadone Screen Negative, Ur Barbituates Screen Negative, Ur Phencyclidine Scrn Negative, Ur Amphetamines Screen TNP, U Benzodiazepines Scrn Negative, Urine Cocaine Screen Negative, U Marijuana (THC) Screen Positive H 09/24/23 18:15: WBC 14.9 H, RBC 4.88, Hgb 14.6, Hct 43.8, MCV 89.8, MCH 30.0, MCHC 33.4, RDW 13.3, Plt Count 257, MPV 11.0 H, Neut % (Auto) 66.9, Lymph % (Auto) 25.6, [place] % (Auto) 5.2, Eos % (Auto) 1.4, Baso % (Auto) 1.0, Neut # (Auto) 10.0 H, Lymph # (Auto) 3.8, [place] # (Auto) 0.8, Eos # (Auto) 0.2, Baso # (Auto) 0.2, Sodium 142, Potassium 2.7 L*, Chloride 102, Carbon Dioxide 29, Anion Gap 13.7, BUN 14, Creatinine 1.00, Estimated Creat Clear 64, Estimated GFR 60, Est GFR ( Amer) 73, Glucose 100, Lactate 2.5 H, Calcium 10.4 H, Magnesium 1.8, Total Bilirubin 0.5, AST 51 H, ALT 33, Alkaline Phosphatase 75, Troponin I < 0.01, Total Protein 8.1, Albumin 4.7, Globulin 3.4 H, Albumin/Globulin Ratio 1.4, Lipase 109, HCG, Quant < 2 09/24/23 18:25: Urine Color Yellow, Urine Appearance Clear, Urine pH 6.0, Ur Specific [place] <= 1.005, Urine Protein Negative, Urine Glucose (UA) Negative, Urine Ketones Negative, Urine Blood Negative, Urine Nitrate Negative, Urine Bi lirubin Negative, Urine Urobilinogen 0.2, Ur Leukocyte Esterase Negative, Urine RBC None, Urine WBC Occasional, Ur Squamous Epith Cells Occasional, Urine Bacteria Trace 09/24/23 22:30: Troponin I < 0.01 09/24/23 22:50: Lactate 1.0 09/25/23 02:15: Potassium 4.0 D, Troponin I < 0.01 I & O for Last 24 hours: Intake & Output 09/22/23 09/23/23 09/24/23 09/25/23 23:59 23:59 23:59 23:59 Intake Total 100 / 100 Output Total 0 / 0 Balance 100 / 100 Weight 56.245 kg 54.2 kg Constitutional Constitutional: no acute distress, average body habitus and chronically ill appearing *Routine HEENT Exam Head: Present normocephalic Eye: Present EOMI and PERRL ENT: Present mucous membranes moist *Routine Neck Exam Neck: Present supple; Absent lymphadenopathy *Routine Respiratory Exam Respiratory: Present CTA bilaterally; Absent rhonchi, wheezes or crackles *Routine Cardiovascular Exam Cardiovascular: Present RRR *Routine Abdominal Exam Abdominal: Present soft, normoactive bowel sounds and tenderness (mild non- focal) *Routine Extremities Exam Extremities: Absent cyanosis, clubbing or edema *Routine Skin Exam Skin: Present warm; Absent rash *Routine Neurological Exam Neurological: Present alert, oriented X3, moving all extremities and normal speech; Absent altered mental status Routine Psychiatric Exam Psychiatric: Present anxious and paranoid Results Data Completed and Pending Labs on day of discharge: Labs from last 24 hours 09/25/23 09/24/23 09/24/23 02:15 22:50 22:30 WBC RBC Hgb Hct MCV MCH MCHC RDW Plt Count MPV Neut % (Auto) Lymph % (Auto) [place] % (Auto) Eos % (Auto) Baso % (Auto) Neut # (Auto) Lymph # (Auto) [place] # (Auto) Eos # (Auto) Baso # (Auto) Sodium Potassium 4.0 D Chloride Carbon Dioxide Anion Gap BUN Creatinine Estimated Creat Clear Estimated GFR Est GFR ( Amer) Glucose Lactate 1.0 Calcium Magnesium Total Bilirubin AST ALT Alkaline Phosphatase Troponin I < 0.01 < 0.01 Total Protein Albumin Globulin Albumin/Globulin Ratio Lipase HCG, Quant Urine Color Urine Appearance Urine pH Ur Specific [place] Urine Protein Urine Glucose (UA) Urine Ketones Urine Blood Urine Nitrate Urine Bilirubin Urine Urobilinogen Ur Leukocyte Esterase Urine RBC Urine WBC Ur Squamous Epith Cells Urine Bacteria Urine Opiates Screen Urine Methadone Screen Ur Barbituates Screen Ur Phencyclidine Scrn Ur Amphetamines Screen U Benzodiazepines Scrn Urine Cocaine Screen U Marijuana (THC) Screen 09/24/23 09/24/23 09/24/23 18:25 18:15 18:10 WBC 14.9 H RBC 4.88 Hgb 14.6 Hct 43.8 MCV 89.8 MCH 30.0 MCHC 33.4 RDW 13.3 Plt Count 257 MPV 11.0 H Neut % (Auto) 66.9 Lymph % (Auto) 25.6 [place] % (Auto) 5.2 Eos % (Auto) 1.4 Baso % (Auto) 1.0 Neut # (Auto) 10.0 H Lymph # (Auto) 3.8 [place] # (Auto) 0.8 Eos # (Auto) 0.2 Baso # (Auto) 0.2 Sodium 142 Potassium 2.7 L* Chloride 102 Carbon Dioxide 29 Anion Gap 13.7 BUN 14 Creatinine 1.00 Estimated Creat Clear 64 Estimated GFR 60 Est GFR ( Amer) 73 Glucose 100 Lactate 2.5 H Calcium 10.4 H Magnesium 1.8 Total Bilirubin 0.5 AST 51 H ALT 33 Alkaline Phosphatase 75 Troponin I < 0.01 Total Protein 8.1 Albumin 4.7 Globulin 3.4 H Albumin/Globulin Ratio 1.4 Lipase 109 HCG, Quant < 2 Urine Color Yellow Urine Appearance Clear Urine pH 6.0 Ur Specific [place] <= 1.005 Urine Protein Negative Urine Glucose (UA) Negative Urine Ketones Negative Urine Blood Negative Urine Nitrate Negative Urine Bilirubin Negative Urine Urobilinogen 0.2 Ur Leukocyte Esterase Negative Urine RBC None Urine WBC Occasional Ur Squamous Epith Cells Occasional Urine Bacteria Trace Urine Opiates Screen Negative Urine Methadone Screen Negative Ur Barbituates Screen Negative Ur Phencyclidine Scrn Negative Ur Amphetamines Screen TNP U Benzodiazepines Scrn Negative Urine Cocaine Screen Negative U Marijuana (THC) Screen Positive H DS: Diagnosis Discharge Diagnosis (1) Acute hypokalemia: Status: Acute Code(s): E87.6 - Hypokalemia (2) Constipation: Status: Acute Code(s): K59.00 - Constipation, unspecified (3) Anxiety: Status: Acute Code(s): F41.9 - Anxiety disorder, unspecified Meds Home Medications and Allergies Home Medications Medication Instructions Recorded Confirmed Type polyethylene glycol 3350 17 gram 17 g PO DAILY 30 days #0 ea 09/25/23 Rx oral powder packet (HealthyLax) New Prescriptions to Start Prescriptions: Allergies Allergy/AdvReac Type Severity Reaction Status Date / Time povidone-iodine Allergy Verified 09/24/23 18:23 [From Betadine] pseudoephedrine Allergy Verified 09/24/23 18:23 [From Sudafed] shellfish derived Allergy Verified 09/24/23 18:23 Discharge Plan Disposition Patient Disposition: Home, Self-Care Condition: Fair Follow up Plan Follow up with: Provider,Referral, MD [Primary Care Provider] - Enter time for follow up (please call PCP for follow up.) Prescriptions/Medication Reconciliation: New polyethylene glycol 3350 [HealthyLax] 17 gram Powder In Packet 17 g PO DAILY 30 Days Qty: 0 0RF Problem Reconciliation Problems Reviewed?: Yes Patient Discharge Instructions ACTIVITY: Continue current activity DIET: continue same diet Patient Instructions: DI for Constipation, DI for Hypokalemia, DI for Vomiting -- Adult Providers Primary Care Provider: Provider,Referral Admit Provider: Ezequiel Castro Attending Provider: Ezequiel Castro
[2023-09-26 08:00] VITALS: BP 131/70; PULSE 78; RESP 20; TEMP 36.7; O2SAT 95
[2023-09-26] MEDS: POLYETHYLENE GLYCOL 3350 17 GM PACKET PO (09:40)
[2023-09-26] MEDS: SENNOSIDES 8.6MG/DOCUSATE 50MG TABLET 1 TAB PO (09:40)
--- NOTE | 2023-09-27 10:49 | CARE MANAGER ---
Called and spoke with patient regarding recent discharge. Patient stated that she is doing well, no concerns voiced at time of call.
[2023-09-29 11:10] LABS: Amphetamine Positive (.); Amphetamine (GC/MS) >3000 ng/mL (Cutoff=500); Amphetamines Positive (.); Methamphetamine Positive (.); Methamphetamine (GC/MS) >3000 ng/mL (Cutoff=500)
== END 2023-09-26 09:50 | disposition home or self-care (01) ==
LOC: ER 18:24 → 2ND 22:10
PROVIDERS: Nurse Practitioner Acute Care; Admitting Provider Internal Medicine Adolescent Medicine; Emergency Provider Emergency Medicine; Visit Provider Internal Medicine Adolescent Medicine
DX: E87.6 Hypokalemia (principal); K59.00 Constipation, unspecified; F17.210 Nicotine dependence, cigarettes, uncomplicated; F41.9 Anxiety disorder, unspecified; G43.909 Migraine, unspecified, not intractable, without status migrainosus
CPT/HCPCS: 36415; 70450; 70496; 74177; 80048; 80053; 80307; 80324; 81001; 83605; 83690; 83735; 84132; 84484; 84702; 85025; 93005; 99221; 99291; G0378; G0480; J0131; J1200; J1650; J1885; J2060; J2270; J2405; J7120; Q9967